=== PATIENT | female | born 1995 | race African-American/Black ===

== ENCOUNTER 2019-12-30 16:55 | Observation (INO) ==
[2019-12-30 17:17] LABS: Basophils % 0.5 % (0.0-0.8); Eosinophils % 0.3 % (0.00-10.9); Hematocrit 35.1 VOL% (35.7-47.0); Hemoglobin 11.9 GM/DL (12.0-16.0); Immature Granulocytes % 0.3 %; Immature Granulocytes Absolute 0.02 #; Lymphocytes # 2.4 10*3/uL (1.4-4.0); Lymphocytes % 30.9 % (21.3-54.2); Mean Corpuscular HGB Conc 33.9 GM/DL (32-36); Mean Platelet Volume 9.4 FL (9.6-12.0); Monocytes % 3.6 % (1.7-12.7); Neutrophils % 64.4 % (38.7-73.9); Platelet Count 332 T/CUMM (130-400); Red Blood Count 4.23 MC/CUMM (3.8-5.5); Red Cell Distribution Width 12.2 % (9.3-17.3); White Blood Count 7.7 T/CUMM (4-12)
[2019-12-30 17:26] LABS: PT Patient Result 11.1 SECS (9.8-11.9); Partial Thromboplastin Time 25.4 SECS (23.9-33.8)
[2019-12-30 17:35] LABS: Apearance,Urine CLEAR (Clear); Bilirubin,Urine Negative (Negative); Blood, Urine Small mg/dL (Negative); Glucose,Urine (UA) Negative (Negative); Hyaline Casts,Urine 1 /LPF (0-3); Ketones,Urine Negative (Negative); Mucus,Urine Occasional /LPF (Occasional); Nitrite,Urine Negative (Negative); Protein,Urine Negative; RBC,Urine <1 /HPF (0-4); Squamous Epithelial Cell,Urine Occasional /HPF (0-10); Urine Color Yellow (Yellow); Urine Specific Gravity 1.013 (1.001-1.035); Urine Urobilinogen < 2.0 EU/DL (0.2-1.0)
[2019-12-30 17:36] LABS: Alanine Aminotransferase 12 U/L (13-56); Albumin 3.5 G/DL (3.4-5.0); Alkaline Phosphatase 55 U/L (45-117); Amylase 51 U/L (25-115); Aspartate Amino Transferase 19 U/L (0-37); Blood Urea Nitrogen 8 MG/DL (7-18); Calcium 8.4 MG/DL (8.5-10.1); Estimated Glom Filtration Rate 79 ML/MIN; Glucose 89 MG/DL (74-106); Osmolality,Calculated 271.7 MOS/KG (273-304); Total Protein 7.3 G/DL (6.4-8.3)
[2019-12-30 17:42] LABS: Barbiturates Screen,Urine Negative (Negative); Benzodiazepines Screen,Urine Negative (Negative); Cannabinoid Screen,Urine Negative (Negative); Opiate Screen,Urine Negative (Negative); Phencyclidine Screen,Urine Negative (Negative)
[2019-12-30] MEDS ORDERED: KETOROLAC 30 MG/1 ML VIAL IV STA (18:00)
[2019-12-30] MEDS ORDERED: KETOROLAC 30 MG/1 ML VIAL ONE (18:01)
[2019-12-30] MEDS ORDERED: LACTATED RINGERS 1,000 ML IV ONE (18:20)
[2019-12-30] MEDS ORDERED: MORPHINE 4 MG/1 ML VIAL IV STA (18:21)
[2019-12-30] MEDS ORDERED: DIPH/TET/ACEL PERT BOOSTER VACCINE 0.5 ML VIAL IM ONE (18:39)
[2019-12-30] MEDS ORDERED: PIPERACILLIN/TAZOBACTAM 3,375 MG in SODIUM CHLORIDE 0.9% 100 ML IV STA (18:39)
[2019-12-30] MEDS ORDERED: ACETAMINOPHEN 325 MG TABLET PO PRN (18:50)
[2019-12-30] MEDS ORDERED: ONDANSETRON 4 MG/2 ML VIAL ONE (18:56)
[2019-12-30] MEDS ORDERED: LIDOCAINE 1%/EPI INJ 20 ML VIAL ONE (19:38)
[2019-12-30] MEDS: VANCOMYCIN INJ 1,000 MG in SODIUM CHLORIDE 0.9% 250 ML IV SCH (20:30)
[2019-12-30] MEDS: HYDROmorphone 2 MG/1 ML VIAL IV PRN (23:01)
[2019-12-30] MEDS: ONDANSETRON 4 MG/2 ML VIAL IV PRN (23:01)
[2019-12-30] MEDS: DEXTROSE 5% LACTATED RINGERS 1,000 ML IV SCH (23:02)
[2019-12-30] MEDS ORDERED: PROMETHAZINE 25 MG/1 ML VIAL IM PRN (23:50)
[2019-12-31] MEDS: PIPERACILLIN/TAZOBACTAM 3,375 MG in SODIUM CHLORIDE 0.9% 100 ML IV SCH ×3 (02:49→18:03)
[2019-12-31] MEDS: ONDANSETRON 4 MG/2 ML VIAL IV PRN (05:32)
[2019-12-31] MEDS: HYDROmorphone 2 MG/1 ML VIAL IV PRN ×3 (05:33→22:58)
[2019-12-31 05:50] LABS: Basophils % 0.3 % (0.0-0.8); Hematocrit 33.5 VOL% (35.7-47.0); Hemoglobin 11.3 GM/DL (12.0-16.0); Immature Granulocytes % 0.2 %; Immature Granulocytes Absolute 0.03 #; Lymphocytes # 1.6 10*3/uL (1.4-4.0); Lymphocytes % 12.8 % (21.3-54.2); Mean Corpuscular HGB Conc 33.7 GM/DL (32-36); Mean Corpuscular Volume 83.5 FL (87-102); Mean Platelet Volume 10.2 FL (9.6-12.0); Monocytes % 3.4 % (1.7-12.7); Neutrophils % 83.3 % (38.7-73.9); Platelet Count 281 T/CUMM (130-400); Red Blood Count 4.01 MC/CUMM (3.8-5.5); Red Cell Distribution Width 12.1 % (9.3-17.3); White Blood Count 12.6 T/CUMM (4-12)
[2019-12-31 06:19] LABS: Calcium 8.9 MG/DL (8.5-10.1); Osmolality,Calculated 273.5 MOS/KG (273-304)
[2019-12-31] MEDS ORDERED: BUPIVACAINE MPF 0.25% 30 ML VIAL ONE (06:43)
[2019-12-31] MEDS ORDERED: LIDOCAINE 1%/EPI INJ 20 ML VIAL ONE (06:43)
[2019-12-31 07:03] LABS: Hypochromasia 1+; Microcytosis Slight; Platelet Estimate Normal
[2019-12-31] MEDS: VANCOMYCIN INJ 1,000 MG in SODIUM CHLORIDE 0.9% 250 ML IV SCH ×2 (07:08→23:52)
[2019-12-31] MEDS ORDERED: LIDOCAINE 2% 5 ML VIAL ONE (08:55)
[2019-12-31] MEDS ORDERED: propofoL 200 MG/20 ML VIAL IV ONE (08:55)
[2019-12-31] MEDS ORDERED: SEVOFLURANE 1 UNIT/15 MINUTE INH ONE (08:55)
[2019-12-31] MEDS ORDERED: fentaNYL 100 MCG/2 ML VIAL ONE (08:56)
[2019-12-31] MEDS ORDERED: DEXAMETHASONE 4 MG/1 ML VIAL ONE (08:56)
[2019-12-31] MEDS ORDERED: PHENYLEPHRINE 1 MG/10 ML SYRINGE IV ONE (08:56)
[2019-12-31] MEDS ORDERED: MIDAZOLAM 2 MG/2 ML VIAL ONE (08:56)
[2019-12-31] MEDS ORDERED: ONDANSETRON 4 MG/2 ML VIAL ONE (08:56)
[2019-12-31] MEDS ORDERED: HYDROmorphone 2 MG/1 ML VIAL IV PRN (08:57)
[2019-12-31] MEDS ORDERED: ONDANSETRON 4 MG/2 ML VIAL IV PRN (08:57)
[2019-12-31] MEDS: PANTOPRAZOLE 40 MG TABLET PO SCH (09:26)
[2019-12-31] MEDS: DEXTROSE 5% LACTATED RINGERS 1,000 ML IV SCH ×3 (10:20→22:48)
[2020-01-01] MEDS: PIPERACILLIN/TAZOBACTAM 3,375 MG in SODIUM CHLORIDE 0.9% 100 ML IV SCH ×2 (03:35→11:56)
[2020-01-01] MEDS: DEXTROSE 5% LACTATED RINGERS 1,000 ML IV SCH (05:04)
[2020-01-01] MEDS: ONDANSETRON 4 MG/2 ML VIAL IV PRN (08:39)
[2020-01-01] MEDS: VANCOMYCIN INJ 1,000 MG in SODIUM CHLORIDE 0.9% 250 ML IV SCH (08:43)
[2020-01-01] MEDS: PANTOPRAZOLE 40 MG TABLET PO SCH (08:43)
[2020-01-01 08:57] VITALS: BP 164/99
== END 2020-01-01 13:40 | disposition home or self-care (01) ==
LOC: N.EDINP 16:55 → N.ED 16:55 → N.3E 20:45
PROVIDERS: ADMIT Surgery; ATTEND Surgery